=== PATIENT | male | born 1965 | race African-American/Black ===

== ENCOUNTER 2024-07-13 12:30 | Outpatient (RCR) | payer OTHER, SELFPAY ==
--- NOTE | 2024-05-11 13:07 | OTOPEVDC ---
Assessment and note entered by Marylu Guzmán OT Thank you for referring Douglas Tilley to [facility].? An evaluation has been completed. No further treatment is needed. 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 Pt. reports he walks regularly and lifts 30 lbs weights at home. Pt. and sister report limited to no difficulty with ADLs and IADLs. Family check in on him regularly. Reported Pain Level Pain Score 0: Self Report Pain Score 2,2: Self Report Additional Pain Score Comments Pt. reports pain has decreased over time Assessment OT Clinical Summary Pt. is 59 year old M referred due to cerebral infarct and TIA on 02/07/24 Pt. presents for occupational therapy evaluation on this date with sister. Pt. reports intermittent pain and numbness in R UE, but states that it does not interfere or limit daily activities . Pt. demonstrated bilateral UE strength with above average drug abuse technician strength R UE 120 lbs and L UE 88.3, bilateral coordination 9 hole peg test minimally below average at 35 second for R hand and 30 seconds for L hand, then demonstrating no deficits with doffing/donning bilateral tie sneakers, untying and retying. Pt. presents WFL for all functional activities and has maintained independence in ADLs and most IADLs (limited by reported cognitive deficits) and does not reports functional deficits or concerns beyond cognitive processing and speech related deficits. No additional skilled OT services recommended at this time, pt. encouraged to maintain activity and exercise levels. Plan of Care OT Services Indicated No
--- NOTE | 2024-05-12 12:32 | STOPEVAL1 ---
Assessment and note entered by Samia Mayers, SAP TECHNICAL DEVELOPER Reported Pain Level Pain Score 0: Self Report Pain Score 2,2: Self Report Additional Pain Score Comments Pt. reports pain has decreased over time Assessment ST Clinical Summary SPEECH/LANGUAGE EVALUATION This patient was seen for a speech and language evaluation after having had a CVA in March of 2024. Patient presented with moderate receptive aphasia with mild deficits in comprehension of yes /no questions and severe impairment in the recognition of body parts and following directions using body parts. He also presented with severe expressive aphasia characterized as ability to create sentences however often leaves the important or duarte word out of the sentence. For example, he would be able to say I want a ... but unable to say drink or [employer]. Patient is highly aware of deficits and teared up on two occasions during this evaluation, stating he did not know his (comprehension of body part commands) was as impaired as it was. Patient will be seen twice weekly for 10 visits to address receptive/expressive language skills with homework to complete in between sessions. Plan of Care Interventions Treatment of Language ST Services Indicated Yes Treatment Frequency and 2x week for 10 visits. Duration These treatments will address the objective and functional deficits as defined above. The patient will be advanced safely and appropriately in order for the patient to progress towards his/her prior level of function. Additional exercises will be introduced and as well as a comprehensive home exercise program upon discharge, if needed, ?to ensure carryover of functional gains achieved in the clinic. This treatment plan has been reviewed and agreement upon by the patient.
--- NOTE | 2024-05-28 09:57 | PTOPEVDC ---
Assessment and note entered by Pat Cevallos, PT Thank you for referring Douglas Tilley to [facility].? An evaluation has been completed. No further treatment is needed. 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 His sister is assisting him with transportation and as needed. He has improved since February with increased strength and balance with walking, but still has numbness/tingling in R leg. And has aphasia, with current Speech Therapy treatments. His sister Greer is very supportive to pt. They do not report any recent mobility problems or falls. With the evaluation--balance and mobility testing was WNL: LE strength and ROM; 5 reps sit/stand time of 12 seconds; Dalal balance score of 54/56, 6 minute walking test distance of 1650'; good gait pattern; indep on stairs without railing and used alternate step pattern. Skilled PT services are not indicated for pt. Discussed with him to continue walking and increase activity as tolerated. And allow for rest as needed. They agreed there were not any further needs and to d/c from PT. Plan of Care PT Services Indicated No
--- NOTE | 2024-05-28 10:02 | PTOPEVDC ---
Assessment and note entered by Pat Cevallos, PT Thank you for referring Douglas Tilley to [facility].? An evaluation has been completed. No further treatment is needed. 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 His sister is assisting him with transportation and as needed. He has improved since February with increased strength and balance with walking, but still has numbness/tingling in R leg. And has aphasia, with current Speech Therapy treatments. His sister Greer is very supportive to pt. They do not report any recent mobility problems or falls. With the evaluation--balance and mobility testing was WNL: LE strength and ROM; 5 reps sit/stand time of 12 seconds; Dalal balance score of 54/56, 6 minute walking test distance of 1650'; good gait pattern; indep on stairs without railing and used alternate step pattern. Skilled PT services are not indicated for pt. Discussed with him to continue walking and increase activity as tolerated. And allow for rest as needed. They agreed there were not any further needs and to d/c from PT. Plan of Care PT Services Indicated No
--- NOTE | 2024-06-23 13:18 | STOPPROG ---
Assessment and note entered by Samia Mayers, SPEAKER WIRER Evaluation Information Assessment Status Progress Assessment ST Clinical Summary PROGRESS NOTE AND TREATMENT SUMMARY Patient feels his speech is improving. He stated that when he first started, he couldn't say anything but now he feels he is better able to put his thoughts into words and think of specific words. He also indicated that he knows he needs to keep working on his speech/language and wants to do that here at [facility]. Patient has been seen for 10 speech therapy visits and was given a re-evaluation today. Below are examples of improvement noted: Simple and Moderate Level Yes/No Questions: Initially, both were 80% accurate. Today, both were 100% acc. Complex Yes/No Questions: Initially, 40% acc. Today, also 40% acc. Identification of Body Parts by pointing when named by therapist: Initially, 20% acc. Today, 100 % acc. One Step Body Part Commands: Initially, 0% acc. Today 75% accurate. Comprehension of Simple Paragraph: Initially, 60% acc. Today, also 40% acc. Patient is aware that he has difficulty following lengthier pieces of information. Verbal Expression: Automatic Phrase Completions: Initially, 40% acc. Today, 100% acc. Open-Ended Sentence Completions: Initially, 60% acc. Today, 100% acc. Simple Wh-Questions: Initially, 40% acc. Today, 80 % acc. Name Object Function: Initially, 40% acc. Today, 80% acc. Formulate Sentences given words: Initially, not offered as it was judged to be too difficult a task. Today, 40% acc. Divergent Naming: Animals in one minute: Initially, 2 animals independently, increased to 4 words with therapist cues. Today, 6 animals independently, and another he named after one minute. Patient is exhibiting both small and large gains in his ability to comprehend verbal information and express specific words. Conversation is full of general statements but halted when he is trying to think of a specific word. Continued Speech Therapy 2x weekly for 10 visits is recommended to further address patient's receptive/expressive language and speech skills. Patient is aware of progress and wants to continue to further address his speech and language skills. Plan of Care Interventions Treatment of Speech,Treatment of Language ST Services Indicated Yes Treatment Frequency and 2x weekly/10 visits Duration These treatments will address the objective and functional deficits as defined above. The patient will be advanced safely and appropriately in order for the patient to progress towards his/her prior level of function. Additional exercises will be introduced and as well as a comprehensive home exercise program upon discharge, if needed, ?to ensure carryover of functional gains achieved in the clinic. This treatment plan has been reviewed and agreement upon by the patient.
--- NOTE | 2024-07-14 16:00 | STOPDC ---
Assessment and note entered by Samia Mayers, AUTOMATIC LATHE TENDER Reported Pain Level Pain Score 0: Self Report Assessment ST Clinical Summary DISCHARGE SUMMARY AND TREATMENT SUMMARY The patient has been seen for an initial evaluation and 15 treatment sessions focusing on receptive and expressive language. Initially, patient exhibited difficulty with understanding therapist's questions and statements however over time, his ability to catch and respond to questions improved such that we were addressing complex yes/no questions and recall of paragraph level information. There were still times when patient looked at therapist and asked to have the question/comment repeated but this did facilitate improved comprehension. Verbally patient exhibited somewhat fluent speech with obvious word-finding deficits for specific words, i.e. he could make statements in sentence form but then have difficulty recalling the very specific word he wanted to say. By time of discharge, he was able to stop himself, telling himself out loud to slow down, and after a moment, he often was able to stat the specific word he was trying to say. Although patient expressed that he knows his speech is improving, it is not where he wants it to be and desired additional Speech Therapy sessions. At the same time, he verbalized that he understands insurance will no longer pay for direct Speech Therapy treatment and he is accepting of discharge. Plan of Care ST Services Indicated Yes
== END 2024-07-15 10:13 | disposition home or self-care (01) ==
LOC: ANHST 12:30
DX: Z86.73 Personal history of transient ischemic attack (TIA), and cerebral infarction without residual deficits (principal)
CPT/HCPCS: 92507; 92523; 97110; 97161; 97165; 97530

== ENCOUNTER 2024-12-22 00:24 | Day surgery (SDC) | payer OTHER, SELFPAY ==
[2024-12-07 13:23] VITALS: BMI 31.6
--- NOTE | 2024-12-07 13:45 | SUR.PREOP ---
Spoke with patient and sister (Tila). Confirmed that the patient's last dose of plavix is to be take on 12/16/2024 and the endoscopist will inform them when to resume after the procedure.
--- OUTSIDE RECORDS SUMMARY | 2024-12-22 00:26 | XMS_ITS | CONTINUITY OF CARE DOCUMENT ---
Author Name marilyn sanders Address Unknown Organization [facility] Address [address] [place] [address] Phone [phone] Care Team Providers Care Manager Energy Name Role Phone marilyn sanders Unavailable Unavailable INSURANCE PROVIDERS Payer name Policy type / Coverage type [place] red republican ID [facility] [id number] HEALTHCARE AND FAMILY SERVICES Medicaid 1 [id number]
--- OUTSIDE RECORDS SUMMARY | 2024-12-22 00:26 | XMS_ITS | Clinical Summary ---
Author Organization [facility] Address [address] [place] [address] Care Team Providers Care Charge Account Clerk Name Role Phone None, Provider MD Primary Care Provider Unavaila ble Allergies No known active allergies Medications atorvastatin (LIPITOR) 80 MG tablet Take 1 tablet (80 mg total) by mouth nightly at bedtime. Active aspirin 81 MG chewable tablet Chew 1 tablet (81 mg total) by mouth daily. Active spironolactone (ALDACTONE) 25 MG tablet Take 2 tablets (50 mg total) by mouth daily. 30 tablet 04/05/2024 Active hydroCHLOROthia zide (HYDRODIURIL) 25 MG tablet Take 1 tablet (25 mg total) by mouth daily. 30 tablet 04/05/2024 Active hydrALAZINE (APRESOLINE) 25 MG tablet Take 1 tablet (25 mg total) by mouth 2 (two) times daily. 120 tablet 04/04/2024 Active losartan (COZAAR) 100 MG tablet Take 1 tablet (100 mg total) by mouth nightly. 30 tablet 04/04/2024 Active NIFEdipine XL (ADALAT CC) 90 MG 24 hr tablet Take 1 tablet (90 mg total) by mouth daily. 30 tablet 04/05/2024 Active Active Problems Problem Noted Date Diagnosed Date Hypokalemia 03/30/2024 Social History Tobacco Use Types Packs/Day Years Used Date Smoking Tobacco: Never Smokeless Tobacco: Never Tobacco Cessation:Counseling Given: Not Answered Alcohol Use Standard Drinks/Week Comments Never 0 (1 standard drink = 0.6 oz pur e alcohol) [facility] Utilities Answer Date Recorded In the past 12 months has th e electric, gas, oil, or water [employer] threatened to shut off services in your home? No 03/31/2024 Humiliation, Afraid, Rape, and Kick questionnair e Answer Date Recorded Within the last year, have y ou been afraid of your partner or ex-partner? No 03/31/2024 Within the last year, have y ou been humiliated or emotionally abused in other ways by your partner or ex-partner? No Within the last year, have y ou been kicked, hit, slapped, or otherwise physically hurt by your partner or ex-partner? No 03/31/2024 Within the last year, have y ou been raped or forced to have any kind of sexual activity by your partner or ex-partner? No 03/31/2024 Overall Financial Resource Strain (CARDIA) Answe r Date Recorded How hard is it for you to pa y for the very basics like food, housing, medical care, and heating? Not hard at all 03/31/2024 Hunger Vital Sign Answer Date Recorded Within the past 12 months, y ou worried that your food would run out before you got the money to buy more. Never true 03/31/20 24 Within the past 12 months, t he food you bought just didn't last and you didn't have money to get more. Never true 03/31/2024 PRAPARE - Transportation Answer Date Re corded In the past 12 months, has l ack of transportation kept you from medical appointments or from getting medications? No 03/06 In the past 12 months, has l ack of transportation kept you from meetings, work, or from getting things needed for daily living? No 03/31/2024 Housing Stability Vital Sign Answer Dinesh e Recorded In the last 12 months, was t here a time when you were not able to pay the mortgage or rent on time? No 03/31/2024 In the past 12 months, how m any times have you moved where you were living? 0 03/31/2024 At any time in the past 12 m [facility], were you homeless or living in a detention (including now)? No 03/31/2024 Sex and Gender Information Value Date Recorded Sex Assigned at Not on file Legal Sex Male 5:06 PM CDT Gender Identity Not on file Sexual Orientation Not on file Last Filed Vital Signs Vital Sign Reading Time Taken Comments Blood Pressure 151/100 04/04/2024 10:38 AM CDT Pulse 81 04/04/2024 10:38 AM CDT Temperature 36.9 C (98.4 F) 04/04/2024 10:38 AM CDT Respiratory Rate 16 04/04/2024 10:38 AM CDT Oxygen Saturation 99% 04/04/2024 10:38 AM CDT Inhaled Oxygen Concentration - - Weight 107 kg (235 lb 14.3 oz) 04/03/2024 4:46 A M CDT Height 177.8 cm (5' 10 ) 03/30/2024 5:32 PM CDT Body Mass Index 33.85 03/30/2024 5:32 PM CDT Plan of Treatment Health Maintenance Due Date Last Done Comments Colorectal Cancer Screening Colonoscopy (10 Years) 1966 Annual Physical 1969 Hepatitis C 02/09/1984 DTaP, Tdap and Td Vaccines ( 1 - Tdap) 1985 Hepatitis B Vaccines (1 of 3 - 19+ 3-dose series) 1985 Pneumococcal Vaccine: 50+ Ye ars (1 of 1 - PCV) 02/09/2016 Zoster Vaccines (1 of 2) 02/09/2016 COVID-19 Vaccine ( - 2023-2 5 season) 2024 Meningococcal B Vaccine Aged Out No l onger eligible based on patient's age to complete this topic Meningococcal Vaccine Aged Out No kenia shayne eligible based on patient's age to complete this topic RSV Immunizations Under 20 Months Aged Out No longer eligible based on patient's age to complete this topic Insurance [place] [address] Advance Directives * Full Code (Latest Code Status on File) Date Activated Date Inactivated Comments 03/30/2024 8:41 PM 04/04/2024 3:41 PM Care Teams Charge Account Clerk Relationship Specialty Start Date End Date None, Provider, MD PCP - General UNKNOWN PHYSICIAN SPECIALTY 03/30/24
[2024-12-22 06:50] VITALS: BP 148/97; PULSE 79; RESP 18; TEMP 36.1; O2SAT 97; BMI 33.0
[2024-12-22] MEDS: LACTATED RINGERS 1,000 ML 150 ML IV CONT (07:04)
--- NOTE | 2024-12-22 07:30 | SUR.PREOP ---
Patient reports eating a bologna sandwich and chips yesterday around lunchtime. Reporting almost clear stools. Dr. Pineda notified and aware. Okay to proceed with procedure.
--- NOTE | 2024-12-22 07:53 | PM.IMHP ---
H&P: HPI History of Present Illness Date/Time: 12/22/24 07:53 Chief Complaint: History of colon polyps Narrative: The patient has a history of colonic polyps, the last colonoscopy was approximately 8 years ago. Review of Systems Review of Systems: All systems reviewed & are unremarkable except as noted in HPI and below [facility] Past Medical History Medical History (Updated 12/22/24 @ 07:53 by Kurt Pineda MD) CKD (chronic kidney disease) Hypertension CVA (cerebral vascular accident) Social History Social History (Updated 11/05/24 @ 10:54 by Stacey Bianchi MA) Substance use type: does not use Do You Feel Safe in your Home?: Yes Lack of Transportation: No Lack of Food: Sometimes True Current Housing: Decline to Answer Concerned About Future Housing: Decline to Answer Difficulty Paying Gas/Electric Bills: Decline to Answer Difficulty Paying for Meds: Decline to Answer Currently Unemployed: Decline to Answer Education: High School Diploma/GED Difficulty w/ Childcare or Family Care: No Gender identity (if verbalized by the patient): Female Meds Home Medications and Allergies Home Medications Medication Instructions Recorded Confirmed Type aspirin 81 mg tablet,delayed 81 mg PO DAILY 11/04/24 12/22/24 History release atorvastatin 40 mg tablet (Lipitor) 40 mg PO DAILY 11/04/24 12/22/24 History carvedilol 6.25 mg tablet 6.25 mg PO Q12H 11/04/24 12/22/24 History clopidogrel 75 mg tablet 75 mg PO DAILY 11/04/24 12/22/24 History hydralazine 50 mg tablet 50 mg PO BID 11/04/24 12/22/24 History losartan 100 mg tablet 100 mg PO DAILY 11/04/24 12/22/24 History nifedipine 90 mg tablet,extended 90 mg PO DAILY 11/04/24 12/22/24 History release spironolactone 25 mg tablet 25 mg PO DAILY 11/04/24 12/22/24 History Allergies Allergy/AdvReac Type Severity Reaction Status Date / Time No Known Allergies Allergy Verified 12/22/24 06:48 Vital Signs Vital Signs - 24 hr 12/22/24 06:50 Temperature 97 F L Pulse Rate 79 Respiratory Rate 18 Blood Pressure 148/97 H Pulse Oximetry 97 Oxygen Delivery Room Air Exam Const: General: cooperative and healthy appearing Resp: Effort & Inspection: normal respiratory effort and able to speak in complete sentences Auscultation: clear to auscultation bilaterally Cardio: Rate: regular rate Rhythm: regular rhythm GI: Inspection: normal to inspection GI Palp: No No hepatosplenomegaly present Auscultation: normal bowel sounds Rectal Exam: deferred Skin: General skin exam: normal color Psych: Appearance: grossly normal Mental Status: mental status grossly normal Assessment and Plan Assessment and plan (1) History of colonic polyps: Code(s): Z86.0100 - Personal history of colon polyps, unspecified Status: Acute Assessment and Plan: The patient is deemed a good candidate for the procedure. Consent signed. Will proceed.
[2024-12-22 08:15] VITALS: BP 117/82; PULSE 71; RESP 16; O2SAT 97
[2024-12-22 08:25] VITALS: BP 133/89; PULSE 65; RESP 21; O2SAT 100
[2024-12-22 08:35] VITALS: BP 144/101; PULSE 63; RESP 17; O2SAT 100
== END 2024-12-22 08:40 | disposition home or self-care (01) ==
PROVIDERS: Visit Provider Internal Medicine Gastroenterology
PROC: 0DJD8ZZ Inspection of Lower Intestinal Tract, Via Natural or Artificial Opening Endoscopic (ICD-10-PCS; CPT 45378; principal; 2024-12-22 08:00)
DX: Z12.11 Encounter for screening for malignant neoplasm of colon (principal); Z86.0100 Personal history of colon polyps, unspecified
CPT/HCPCS: 45378; J2003; J2704; J7120

== ENCOUNTER 2025-02-22 14:30 | Outpatient (RCR) | payer OTHER, SELFPAY ==
--- NOTE | 2024-12-01 12:03 | BUSTOPEVAL1 ---
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 He reported that he has significant difficulty finding the words he wants to say along with his ability to read. He used to love to read and is now unable to. Patient's sister reported that the patient was seen for skilled ST for 10 visits post stroke but then was denied for more visits due to not enough information being sent into insurance. They were very unhappy with how things were dealt with due to the necessity of need for the patient and the importance of the first 6-12 months post CVA to make big improvements in overall cognitive-communication skills. They feel that the patient desperately needs more skilled ST treatment and the patient is very motivated to improve in speech-language skills. Throughout the assessment the patient spoke at the simple word/phrase level with frequent difficulty finding the words he wanted to say. The patient presented with improvements in word finding abilities throughout the assessment through use of phonemic cues and circumlocution. He often experiences communication breakdowns due to word searching resulting in frustration with familiar and unfamiliar communication partners. He reported that he often just stops attempting to say what he wants to say due to difficulty getting the message out. The [facility] Adult Language Evaluation was administered during the session this date with results below. SLUMS and MMSE were unable to be completed due to time constraints but will be completed within the next session. Reported Pain Level Pain Score 0: Self Report Assessment ST Clinical Summary Patient was referred for a skilled ST evaluation due to ongoing aphasia impacting the patient's ability communicate wants/needs/ideas along with ability to read. 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 The patient loved to read and is unable to do this now as a result of the stroke. He received some ST treatment in the past but was denied more visits due to needing more information and the family was very unhappy with how things were handled. They feel that the patient desperately needs ST treatment and they know that the first 12 months post CVA are very critical in making progress with speech-language skills. Throughout the assessment the patient spoke at the simple word/phrase level with significant difficulties in word finding. He often attempted to get the message out but would stop and then just eventually quit trying due to frustration. The [facility] Adult Language Evaluation was completed during the session with the results below: Auditory Comprehension: Deficits noted in answering complex yes/no questions, following 1 ( 75% accuracy), 2 (50% accuracy), 3 (0% accuracy) step directions, complex directives (0% accuracy), and moderate/complex paragraph retention skills ( 20% accuracy). Reading Comprehension: Deficits noted in 3-4 word comprehension (50% accuracy) along with 5-7 and 8- 10 word comprehension skills (0% accuracy), complex sentences (0% accuracy), simple-complex paragraphs, and functional reading. Verbal Expression: Deficits noted in automatic speech (66% accuracy), sentence repetition, higher level confrontational naming, object function, sentence formation when given a target word, divergent naming (named 5 animals within 1 minute- goal is 15 items named), and connect speech picture description task (patient spoke at the simple word level with significant difficulty attempting to form sentences). Connected speech: Cookie Jar picture 1. You got a lot of stuff. 2. The washer is scrubbing. 3. Cookie...The ladder, pantry, the mower.... 4. Why the dude.... wait now, plates... 5. There's a little girl, a dog, a cat. Patient presented with frequent word searching and difficulty attempting to produce connected speech for completion of grammatically correct sentences throughout the picture description task. Patient required increased time throughout verbal expression testing for processing. He often required repetition of questions and items within all language testing during the session this date. Completion of the SLUMS and MMSE will be performed in the next session due to time constraints within the assessment date. The patient experiences difficulty in communication skills and cognitive ability impacting his ability to complete ADL's with least amount of assistance . The patient often gets frustrated with communication difficulties and will quit speaking when he is unable to come up with the words resulting in abrupt ending of meaningful conversations with others. The patient's current deficits required extensive skilled ST treatment to target cognitive-communication skills to improve overall communication function and ability to return to reading and other ADL's. Recommendation for skilled ST 1-2x week for 10 visits for the treatment of aphasia. Plan of Care Interventions Treatment of Speech,Treatment of Language, Treatment for Cognitive Function Treatment Frequency and 1-2x week for 10 visits Duration These treatments will address the objective and functional deficits as defined above. The patient will be advanced safely and appropriately in order for the patient to progress towards his/her prior level of function. Additional exercises will be introduced and as well as a comprehensive home exercise program upon discharge, if needed, ?to ensure carryover of functional gains achieved in the clinic. This treatment plan has been reviewed and agreement upon by the patient.
--- NOTE | 2024-12-03 09:48 | OPREHPOC ---
Outpatient Therapy Plan of Care This is a Multidisciplinary Plan of Care that may contain components documented by all disciplines (PT, OT, and ST.) ST Problem 1 ST Problem #[address] Goal 1 Goal / Goal Update 1. Patient and family will participate in home programming to improve carryover/generalization of skills to patient's various environments. Target Visit [address] Problem #[address] Goal 1 Goal / Goal Update Auditory comprehension: 1. Patient will follow 2-3 step directions with 80 % accuracy and minimal cues to improve auditory comprehension skills. 2. Patient will demonstrate comprehension at the simple/moderate paragraph level complexity with 90 % accuracy and minimal cues. Target Visit [address] Problem #[address] Goal 1 Goal / Goal Update Reading Comprehension: 1. Patient will demonstrate comprehension at the 3 -4 word level with 90% accuracy and minimal cues. 2. Patient will demonstrate comprehension at the 5 -7 word level with 90% accuracy and minimal cues. Target Visit [address] Problem #[address] Goal 1 Goal / Goal Update Verbal Expression: 1. Patient will repeat sentences at the 5-7 word level with 90% accuracy and minimal cues to improve fluency of speech. 2. Patient will complete a grammatically correct sentence (6+ word length) when given a target word with 90% accuracy and minimal cues. 3. Patient will complete word finding tasks ( compare/contrast, antonyms, synonyms, sentence completion) with 90% accuracy and minimal cues. 4. Patient will complete divergent (10+items)/ convergent naming tasks with 90% accuracy and minimal cues. Target Visit 10
--- NOTE | 2025-02-22 16:23 | STOPEVAL1 ---
Assessment and note entered by Nataliya Parry, [employer] Evaluation Information Assessment Status Re-evaluation Diagnosis I69.320 ICD-10 Condition Codes (ST) Aphasia following cerebral infarction: I69.320 Subjective Information Patient was referred for a skilled ST evaluation due to ongoing aphasia as a result of a CVA. 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 He reported that he has significant difficulty finding the words he wants to say along with his ability to read. He used to love to read and is now unable to. Patient's sister reported that the patient was seen for skilled ST for 10 visits post stroke but then was denied for more visits due to not enough information being sent into insurance. After resubmission approval was received for 10 additional treatment visits. The patient has been making noted progress within treatment over the past 9 treatments and completing home exercises between treatment sessions to further his progress. The patient is being seen for a Re-evaluation on this date 02/22/25 to assess progress is the areas of Auditory Comprehension, Verbal Expression, Reading Comprehension, and Graphic Expression. The [place] Communication Evaluation was re- administered and findings are as listed below. Reported Pain Level Pain Score 0: Self Report Assessment ST Clinical Summary Patient was referred for a skilled ST evaluation due to ongoing aphasia as a result of a CVA. 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 He reported that he has significant difficulty finding the words he wants to say along with his ability to read. He used to love to read and is now unable to. Patient's sister reported that the patient was seen for skilled ST for 10 visits post stroke but then was denied for more visits due to not enough information being sent into insurance. After resubmission approval was received for 10 additional treatment visits. The patient has been making noted progress within treatment over the past 9 treatments and completing home exercises between treatment sessions to further his progress. The patient is being seen for a Re-evaluation on this date 02/22/25 to assess progress is the areas of Auditory Comprehension, Verbal Expression, Reading Comprehension, and Graphic Expression. The [place] Communication Evaluation was re- administered and findings are as listed below. Auditory comprehension: The patient has made noted progress in the area of auditory comprehension. The patient initially was able to identify simple pictures and objects but yes and no questions were at 75% with moderate complex material and are now at 100%. The patient previously followed 2 step directives with 75% and now is able to follow 2 step directives 100%. Finally, he previously comprehended moderate complex paragraphs 20% now at 100% accuracy. Reading Comprehension: The patient has made noted progress with reading comprehension. Previously he was able to recognize single words and familiar personal information. However, he is now comprehending 5-7 word sentences from 70% to presently 100%. He is comprehending 8-10 word sentences from 65% to presently 75%. Complex sentences he is reading 80% and comprehending 30% of the complex material read. The patient was previously unable to complete this task for testing. Verbal Expression: The patient has made noted progress for verbal expression. He previously completed confrontational naming with 75% and presently is completing confrontational naming with 100% accuracy. Previously the patient was formulating sentences for a given word with 75% and presently performs this task with 90% accuracy. Divergent naming initially completed with 3-4 items for common categories currently 6-7 items provided per category stated. Graphic Expression: The patient initially able to copy single words and write own name. Now able to write single words to dictation or functional objects presented visually 30-40%. Plan of Care Interventions Treatment of Speech,Treatment of Language ST Services Indicated Yes Treatment Frequency and 1x week x 10 visits Duration These treatments will address the objective and functional deficits as defined above. The patient will be advanced safely and appropriately in order for the patient to progress towards his/her prior level of function. Additional exercises will be introduced and as well as a comprehensive home exercise program upon discharge, if needed, ?to ensure carryover of functional gains achieved in the clinic. This treatment plan has been reviewed and agreement upon by the patient.
--- NOTE | 2025-02-22 16:24 | OPREHPOC ---
Outpatient Therapy Plan of Care This is a Multidisciplinary Plan of Care that may contain components documented by all disciplines (PT, OT, and ST.) ST Problem 1 ST Problem #[address] Goal 1 Goal / Goal Update 1. Patient and family will participate in home programming to improve carryover/generalization of skills to patient's various environments. Goal Updated 02/22/25 Met Target Visit [address] Problem 2 ST Problem #[address] Goal 1 Goal / Goal Update Auditory comprehension: 1. Patient will follow 2-3 step directions with 80 % accuracy and minimal cues to improve auditory comprehension skills. Goal Updated 02-22-25 Met 2 step 90%. 3-step 70% New Goal: The patient will follow 3 step directives with 85% accuracy and minimal cues. 2. Patient will demonstrate comprehension at the simple/moderate paragraph level complexity with 90 % accuracy and minimal cues. Goal updated 02-22-25. Simple paragraph comprehension 100% Moderate paragraph level 80% New Goal: The patient will demonstrate comprehension of moderate paragraph length material with 85% accuracy and minimal cues. Target Visit [address] Problem #[address] Goal 1 Goal / Goal Update Reading Comprehension: 1. Patient will demonstrate comprehension at the 3 -4 word level with 90% accuracy and minimal cues. Goal updated 02-22-25 3-4 word level 100% Goal Met. 2. Patient will demonstrate comprehension at the 5 -7 word level with 90% accuracy and minimal cues. Goal updated 02-22-25 5-7 word level 90% Goal Met 02/22/25 New Goals: 1. The patient will demonstrate comprehension of 8 -10 word level material with 80% and minimal cues 2. The patient will comprehend complex sentences with 70% accuracy. Target Visit [address] Problem #[address] Goal 1 Goal / Goal Update Verbal Expression: 1. Patient will repeat sentences at the 5-7 word level with 90% accuracy and minimal cues to improve fluency of speech. Goal updated 02-22-25 repeating sentences 5-7 words 100% Met 2. Patient will complete a grammatically correct sentence (6+ word length) when given a target word with 90% accuracy and minimal cues. Goal updated 02-22-25 the patient is producing grammatically correct sentences (5-6 word length) when given a target word with 90% accuracy - Met 3. Patient will complete word finding tasks ( compare/contrast, antonyms, synonyms, sentence completion) with 90% accuracy and minimal cues. Goal Updated the patient is completing word finding tasks (sentence completion 90%, compare/ contrast 60%, synonyms 60%) 02-22-25 New Goal: The patient will complete word finding tasks for (compare contrast and synonyms) with 80% accuracy and minimal cues. 4. Patient will complete divergent (10+items)/ convergent naming tasks with 90% accuracy and minimal cues. Goal updated 02-22-25 completing divergent naming ( 6-7 items) with 90% accuracy and minimal cues. 02-22-25 New Goal: The patient will complete divergent naming for 8-10 items with 90% accuracy and minimal cues. Target Visit 20
== END 2025-02-28 23:59 | disposition home or self-care (01) ==
LOC: ANHST 14:30
DX: R47.01 Aphasia (principal)
CPT/HCPCS: 92507; 92523

== ENCOUNTER 2025-06-14 11:00 | Outpatient (RCR) | payer OTHER, SELFPAY ==
--- NOTE | 2025-05-17 15:27 | OPREHPOC ---
Outpatient Therapy Plan of Care This is a Multidisciplinary Plan of Care that may contain components documented by all disciplines (PT, OT, and ST.) ST Goal 1 Goal / Goal Update Continue to participate in home programming to improve carry over/generalization of skills to the home environment. Updated 02/22/25: Met Patient completes materials outside treatment to carry over techniques in home environment. Progress Met ST Goal 2 Goal / Goal Update New Goal: 1. Continue use of techniques provided in treatment to carry over/generalize in the home environment with home programming. Target Visit [address] Problem #[address] Goal 1 Goal / Goal Update Auditory Comprehension: 1. The patient will follow 3 step directives with 85% accuracy and minimal cues. Updated 05/17/25: Not Met: Following 20-30% minimal to moderate cues. 2. The The patient will demonstrate comprehension of moderately complex paragraph length information with 85% and minimal cues. Updated 05/17/25: Not Met 80% accuracy and minimal cues. Progress Not Met ST Goal 2 Goal / Goal Update New Goals: 1. The patient will follow 3 step directives with 65% accuracy and minimal cues. 2. The patient will comprehend moderately complex paragraph length information 85% accuracy minimal cues. Target Visit [address] Problem #[address] Goal 1 Goal / Goal Update Reading Comprehension: 1. The patient will demonstrate comprehension of 8 -10 word level material with 80% and minimal cues. Update 05/17/25: Met: Comprehending 8-10 word level material 85% minimal cues. 2. The patient will comprehend complex sentences with 70% accuracy. Update 05/17/25: Met: Comprehending complex statements 80% accuracy. Progress Met ST Goal 2 Goal / Goal Update New Goals: 1. The patient will demonstrate comprehension of complex statements 85% accuracy. 2. The patient will comprehend short paragraph length information with 85% accuracy. Target Visit [address] Problem #[address] Goal 1 Goal / Goal Update Verbal Expression/Graphic Expression: 1. The patient will complete word finding tasks for (compare/contrast, synonyms) with 80% accuracy and minimal cues. Update 05/17/25: Not Met: Completing 65-70% accuracy minimal to moderate cues. 2. The patient will complete divergent naming 8-10 items with 90% accuracy and minimal cues. Update 05/17/25: Met: The patient is naming 8 items for simple groups with 90% and minimal cues. Progress Partially Met ST Goal 2 Goal / Goal Update New Goals: 1. The patient will formulate complete sentences for uncommon words (6-7 word length) with 80% and minimal cues 2. The patient will write 3-4 word responses for every day items with 80% accuracy Target Visit 10
--- NOTE | 2025-05-17 15:28 | STOPEVAL1 ---
Assessment and note entered by Nataliya Parry [facility] [employer] [employer] Evaluation Information Assessment Status Re-evaluation Reported Pain Level Pain Score 0: Self Report Assessment ST Clinical Summary Initial Evaluation: The patient was referred for a skilled ST Evaluation due to ongoing aphasia as a result of a CVA. 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 He reports that he has significant difficulty finding the words he wants to say along with his ability to read. Initial Evaluation results demonstrated moderate to severe deficits for auditory comprehension (yes/no questions and 2 step direction following), verbal expression (expressing basic needs with naming of common items and sentence formulation), reading comprehension(reading and comprehending single words and phrases), graphic expression(writing single words). The patient was seen for a re-evaluation on to assess progress in the areas of Auditory comprehension, Verbal Expression, Reading Comprehension, and Graphic Expression. The [place] Communication Evaluation was re- administered and results were as follows : Auditory Comprehension: Improved direction following from 75% for 2 step directives to 100%. Moderate complex Yes and No questions improved from 75%-100%, Paragraph comprehension moderately complex from 20% accuracy to 100% Reading Comprehension: Comprehending 5-7 word sentences with 100% accuracy. Comprehending 8-10 words sentences with 75% accuracy. Comprehending complex sentences with 80% accuracy. Verbal Expression: Formulating sentences for common words from 75% to improved 90% accuracy. Completing divergent naming of common items from 3 -4 items to 6-7 items. Graphic Expression: The patient was initially unable to copy single words and write own name and was on this evaluation able to write single words from dictation 30-40% accuracy. Re-evaluation Completed 05-17-25: The patient was seen for a re-evaluation on to assess progress in the areas of Auditory comprehension, Verbal Expression, Reading Comprehension, and Graphic Expression. The [place] Communication Evaluation was re- administered and additional subtests completed. results were as follows : Auditory Comprehension: Improved direction following for 3 step directives from 0% accuracy to 20-30%. Paragraph comprehension for complex material from 0% accuracy to 70% Reading Comprehension: Comprehending 8-10 words sentences from 75% accuracy to 100%. Comprehending complex sentences from 80% to 100% accuracy. comprehending simple paragraph length information with 75% accuracy. Verbal Expression: Formulating sentences for abstract words from 30% to improved 65% accuracy. Completing divergent naming of common items from 6 -7 items to 8-10 items. comparing and contrasting items 65% accuracy. Graphic Expression: Previously writing single words from dictation 30-40% accuracy to writing some short phrases 2-3 word length with 60% accuracy. The patient has once again made noted progress especially in the area of reading comprehension and graphic expression. He continues to show improvement in the area of verbal expression and auditory comprehension when using techniques to allow extra time to process the information presented and formulate his response. Recommending continued speech therapy 1x a week x 10 visits to further progress the patients reading comprehension, auditory comprehension, graphic, and verbal expression for functional daily communication and greater independence in activities of daily living. Plan of Care Interventions Treatment of Language ST Services Indicated Yes These treatments will address the objective and functional deficits as defined above. The patient will be advanced safely and appropriately in order for the patient to progress towards his/her prior level of function. Additional exercises will be introduced and as well as a comprehensive home exercise program upon discharge, if needed, ?to ensure carryover of functional gains achieved in the clinic. This treatment plan has been reviewed and agreement upon by the patient.
--- NOTE | 2025-06-10 10:50 | PCSTNOTE ---
Patient called & cancelled scheduled appointment this date due to in hospital
== END 2025-06-20 23:59 | disposition home or self-care (01) ==
LOC: ANHST 11:00
DX: R47.01 Aphasia (principal)
CPT/HCPCS: 92507; 92523

== ENCOUNTER 2025-08-02 12:30 | Outpatient (RCR) | payer OTHER, SELFPAY ==
--- NOTE | 2025-08-02 13:22 | STOPDC ---
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 Since the stroke the patient is unable to continue working as a truck farmer. He reports that he has significant difficulty finding the words he wants to say along with his ability to read. Initial Evaluation results demonstrated moderate to severe deficits for auditory comprehension (yes/no questions and 2 step direction following), verbal expression (expressing basic needs with naming of common items and sentence formulation), reading comprehension(reading and comprehending single words and phrases), graphic expression(writing single words). The patient was seen for a re-evaluation on to assess progress in the areas of Auditory comprehension, Verbal Expression, Reading Comprehension, and Graphic Expression. The [place] Communication Evaluation was re- administered and results were as follows : Auditory Comprehension: Improved direction following from 75% for 2 step directives to 100%. Moderate complex Yes and No questions improved from 75%-100%, Paragraph comprehension moderately complex from 20% accuracy to 100% Reading Comprehension: Comprehending 5-7 word sentences with 100% accuracy. Comprehending 8-10 words sentences with 75% accuracy. Comprehending complex sentences with 80% accuracy. Verbal Expression: Formulating sentences for common words from 75% to improved 90% accuracy. Completing divergent naming of common items from 3 -4 items to 6-7 items. Graphic Expression: The patient was initially unable to copy single words and write own name and was on this evaluation able to write single words from dictation 30-40% accuracy. Re-evaluation Completed 05-17-25: The patient was seen for a re-evaluation on to assess progress in the areas of Auditory comprehension, Verbal Expression, Reading Comprehension, and Graphic Expression. The [place] Communication Evaluation was re- administered and additional subtests completed. results were as follows : Auditory Comprehension: Improved direction following for 3 step directives from 0% accuracy to 20-30%. Paragraph comprehension for complex material from 0% accuracy to 70% Reading Comprehension: Comprehending 8-10 words sentences from 75% accuracy to 100%. Comprehending complex sentences from 80% to 100% accuracy. comprehending simple paragraph length information with 75% accuracy. Verbal Expression: Formulating sentences for abstract words from 30% to improved 65% accuracy. Completing divergent naming of common items from 6 -7 items to 8-10 items. comparing and contrasting items 65% accuracy. Graphic Expression: Previously writing single words from dictation 30-40% accuracy to writing some short phrases 2-3 word length with 60% accuracy. The patient has once again made noted progress especially in the area of reading comprehension and graphic expression. He continues to show improvement in the area of verbal expression and auditory comprehension when using techniques to allow extra time to process the information presented and formulate his response. Recommending continued speech therapy 1x a week x 10 visits to further progress the patients reading comprehension, auditory comprehension, graphic, and verbal expression for functional daily communication and greater independence in activities of daily living. Discharge 08/02/25: Upon discharge the patient is able to comprehend 3 step directives with 90%. Comprehends complex yes and no questions 100% accuracy. Completes reading comprehension for moderately complex paragraphs 85% Recalls paragraph length information with 90% for moderately complex paragraph information. Formulates sentences from a given a given word with 83% Plan of Care ST Services Indicated No
== END 2025-08-02 14:45 | disposition home or self-care (01) ==
LOC: ANHST 12:30
DX: R47.01 Aphasia (principal)
CPT/HCPCS: 92507